=== PATIENT | male | born 1995 | race Asian ===

== ENCOUNTER 2022-10-27 20:37 | Emergency (ER) | payer OTHER ==
[~2022-10-27] VITALS: Ht 172.7 cm; Wt 77.1 kg
[2022-10-27 20:45] VITALS: BP 123/66; PULSE 65; RESP 16; TEMP 98.2; O2SAT 98
--- NOTE | 2022-10-27 20:45 | NUR ---
TO BED AMBULATORY
[2022-10-27] MEDS ORDERED: ACETAMINOPHEN EXTRA STRENGTH 500 MG TAB PO ONE (21:05)
[2022-10-27] MEDS ORDERED: KETOROLAC 30 MG/ML VIAL IM ONE (21:05)
[2022-10-27] MEDS ORDERED: CYCLOBENZAPRINE 10 MG TAB PO ONE (21:05)
--- NOTE | 2022-10-27 21:52 | NUR ---
PT RETURN FROM RADIOLOGY
--- NOTE | 2022-10-27 22:05 | NUR ---
Went to xray Assisted by the [employer].
--- NOTE | 2022-10-27 22:18 | NUR ---
Came back from [facility] by wheelchair assissted by the [employer].
[2022-10-27] MEDS ORDERED: ACETAMINOPHEN EXTRA STRENGTH 500 MG TAB ONE (22:20)
[2022-10-27] MEDS ORDERED: CYCLOBENZAPRINE 10 MG TAB ONE (22:24)
[2022-10-27] MEDS ORDERED: KETOROLAC 30 MG/ML VIAL ONE (22:25)
--- NOTE | 2022-10-27 22:32 | NUR ---
Rosemarie hedrick in EDM - 10/31/22 at 0539 by [email or web address] Pt reassessed 1 hour after giving Toradol shot and tylenol. Still on pain level of 8/10.
--- NOTE | 2022-10-27 22:32 | NUR ---
Pt reassessed 1 hour after giving Toradol shot and tylenol. Still on pain level of 8/10.
[2022-10-27] MEDS ORDERED: ACET-10509 PO (23:07)
[2022-10-27] MEDS ORDERED: IBUP-2213 PO (23:07)
[2022-10-27] MEDS ORDERED: CYCL-711 PO (23:07)
[2022-10-27 23:25] VITALS: BP 123/66; PULSE 65; RESP 16; TEMP 98.2; O2SAT 98
--- NOTE | 2022-10-27 23:25 | NUR ---
Patient discharged with v/s stable. Written and verbal after care instructions given and explained. Patient alert, oriented and verbalized understanding of instructions. Ambulatory with steady gait. All questions addressed prior to discharge. ID band removed. Patient advised to follow up with PMD. Rx of TYLENOL, IBUPROFEN given. Patient educated on indication of medication including possible reaction and side effects. Opportunity to ask questions provided and answered.
== END 2022-10-27 23:25 | disposition home or self-care (01) ==
LOC: MED 20:37
DX: S43.402A Unspecified sprain of left shoulder joint, initial encounter (principal); S20.211A Contusion of right front wall of thorax, initial encounter; Z79.899 Other long term (current) drug therapy; Z79.1 Long term (current) use of non-steroidal anti-inflammatories (NSAID); Z88.0 Allergy status to penicillin; V89.2XXA Person injured in unspecified motor-vehicle accident, traffic, initial encounter; Y93.89 Activity, other specified; Y92.410 Unspecified street and highway as the place of occurrence of the external cause; Y99.8 Other external cause status
CPT/HCPCS: 71100; 73030; 96372; 99284; J1885